=== PATIENT | male | born 1945 | race Caucasian/White ===

== ENCOUNTER → 2021-12-31 | Outpatient (CLI) | payer MEDICARE ==
--- NOTE | 2021-12-31 17:49 | CONS ---
CONSULTATION DATE OF SERVICE: 12/31/2021 This 76-year-old gentleman has been evaluated in [facility] for obstructive sleep apnea-hypopnea syndrome. HISTORY OF PRESENT ILLNESS/SLEEP-WAKE EVALUATION: The patient has had a history of obstructive sleep apnea for 20 years, but he does not remember that he had any diagnostic sleep study 20 years ago. He has been on treatment with CPAP all these years. Six months ago he was told that his CPAP unit is on recall, and he stopped using it. At present his sleep schedule us from 9 or 10 p.m. until 7 or 8 a.m. Usually no problems with falling asleep. No TV in bedroom. He sleeps on the side position. He snores. He wakes up from sleep 3 times with nocturia. During the day he is falling asleep. [place] Sleepiness Scale today is increased at 13. The patient may take naps several times during the day. No history of hypnagogic hallucinations, sleep paralysis or cataplexy. I checked the patient's CPAP unit. This is a [employer] unit. Pressure is 8 cm of water. PAST MEDICAL HISTORY: Positive for hypertension, hyperlipidemia, prostate carcinoma, history of atrial fibrillation. PAST SURGICAL TREATMENT: Radiation therapy for prostate carcinoma, fracture of left leg, right hand finger surgery. MEDICATIONS: Amiodarone, atorvastatin 20 mg once a day, lisinopril 10 mg once a day, Xarelto 20 mg once a day. FAMILY HISTORY: Heart problems. REVIEW OF SYSTEMS: Multiple awakenings from sleep, sleepiness during the day. No fevers. No double vision. No recent chest pain. No shortness of breath. No abdominal pain. No bleeding episodes. No blood in the urine. No seizure episodes. PHYSICAL EXAMINATION: GENERAL: Pleasant gentleman without distress. VITAL SIGNS: BP 123/72, HR 72, RR 16, height 5 feet 11 inches, weight 244 pounds, body mass index 34, temperature 96.7, oxygen saturation at room air 97%. HEENT: PERRLA, EOMI, evaluation of oropharynx showed tongue protrudes midline. Low position of soft palate; Mallampati IV. NECK: Supple, no JVD. Thyroid is not palpable. Neck is wide; 18 inches in circumference. LUNGS: Clear to percussion and to auscultation. Good air exchange. No wheezing or rhonchi. HEART: S1, S2 regular. No murmurs, gallops, or rubs. ABDOMEN: Soft and nontender. Bowel sounds are present. No organomegaly appreciated. EXTREMITIES: No clubbing or cyanosis. NURSE CARE MANAGER: Awake, alert, and oriented X3. Cranial nerves 2 to 7 intact. There is no fasciculation or atrophy. noted. No focal deficits observed. IMPRESSION: 1. Snoring, multiple awakenings from sleep, extremely low position of soft palate, Mallampati IV, wide neck, 18 inches in circumference, history of obstructive sleep apnea in the past, sleepiness, [place] Sleepiness Scale of 13; obstructive sleep apnea-hypopnea syndrome. 2. Obesity; body mass index 34. 3. Hypertension. 4. History of atrial fibrillation. 5. Hyperlipidemia. 6. History of prostate carcinoma, status post radiation therapy. PLAN: 1. Polysomnogram for evaluation of patient's breathing during sleep. Previous diagnostic study is not available. 2. CPAP treatment will be reinitiated after the sleep study. The previous titration which was done in another institution indicates that the pressure 8 cm of water was effective for correction of respiratory abnormalities. 3. Losing weight. 4. Sleep hygiene with regular time in bed for at least 7-1/2 to 8 hours. 5. No driving if feeling sleepiness. 6. Patient prefers to try usage of nasal pillows. Size of pillows should be medium to large AirFit P10. Thank you very much for referring this patient for consultation. Sincerely, Amadeo Patricia MD, PhD, FAASM Diplomat of [place] [employer] Sleep Medicine Board of [place] [employer] Organic Chemist of [facility] [place] MMODL / IJN: [id number] /
== END | disposition home or self-care (01) ==
LOC: SLEEP 13:36
PROVIDERS: ATTEND Internal Medicine
DX: G47.33 Obstructive sleep apnea (adult) (pediatric) (principal); E66.9 Obesity, unspecified; I10 Essential (primary) hypertension; E78.5 Hyperlipidemia, unspecified; Z85.46 Personal history of malignant neoplasm of prostate; Z68.34 Body mass index [BMI] 34.0-34.9, adult
CPT/HCPCS: 99211

== ENCOUNTER → 2022-03-05 | Outpatient (CLI) | payer MEDICARE ==
--- NOTE | 2022-03-05 10:59 | P.PN ---
Subjective DATE: 03/05/2022 FOLLOW UP VISIT. Patient with obstructive sleep apnea hypopnea syndrome return to sleep center for follow-up visit. Recently patient had sleep study which documented obstructive sleep apnea hypopnea syndrome. Patient was initiated on PAP therapy and today is first visit after treatment was started. I discussed the results of sleep studies with patient in details. Patient was able to use PAP equipment every night for the whole night. The patient does not have significant problems with the mask, PAP pressure and humidification. [place] sleepiness scale is 17. I checked information from PAP unit. PAP unit pressure 8 cm H2O. Usage is 80 % for more then 4 hours, average 5.8 hours per night. Leak is 33.8 l/m, which is in acceptable range. Apnea Hypopnea Index is 2.4, which is normal. MEDICATIONS:1. Amiodarone 2. Atorvastatin 20 mg once a day 3. Lisinopril 10 mg once a day 4. Xarelto 20 mg once a day During physical exam: GENERAL: A pleasant patient without any distress. VITAL SIGNS: BP 133/80, HR 51, RR 16 , weight 236.8, temperature 97.0, oxygen saturation at room air 96% . HEENT: PERRLA, EOMI.low position of soft palate, Mallapati 4 . NECK: Supple. No JVD. LUNGS: Clear to percussion and to auscultation. Good air exchange. No wheezing or rhonchi. HEART: S1, S2 regular. ABDOMEN: Soft and nontender.[] EXTREMITIES: No clubbing or cyanosis. OCCUPATIONAL THERAPY TEACHER: Awake, alert, and oriented x3. No focal deficit. Impressions: 1. Obstructive sleep apnea-hypopnea syndrome. Patient demonstrated great compliance with treatment, benefiting from treatment. 2. Hypertension. 3. History of atrial fibrillation. 4. Hyperlipidemia. 5. History of prostate CA status post radiation therapy. Plan: 1. Continue using PAP equipment every night for the whole night. 2. To change air filter at least 1-2 times per month. 3. PAP unit should stay lower then position of the head. 4. Advised patient to remove all remaining water from humidifier canister daily and make it dry after each usage. Refill canister with fresh distilled water before each usage. 5. Sleep hygiene with regular time in bed for at least 8 hours. 6. Precautions related to driving. No driving if feel any sleepiness. 7. I will maintain prescription for PAP supplies including mask, tube, filters. 8. Follow up visit in 6 months or earlier if patient has any problems. 9. Watching weight. Thank you very much for allowing me to participate in the management of your patient. Amadeo Patricia MD, PhD, FAASM. Diplomat of [place] [employer], Sleep Medicine Board by [place] [employer] Customer Service Leader of [facility] [place]
== END ==
LOC: SLEEP 10:11
PROVIDERS: ATTEND Internal Medicine
DX: G47.33 Obstructive sleep apnea (adult) (pediatric) (principal); I10 Essential (primary) hypertension; I48.91 Unspecified atrial fibrillation; E78.5 Hyperlipidemia, unspecified; Z85.46 Personal history of malignant neoplasm of prostate; Z92.3 Personal history of irradiation; Z99.89 Dependence on other enabling machines and devices

== ENCOUNTER → 2023-05-14 | Day surgery (SDC) | payer MEDICARE ==
[~2023-05-14] MED LIST: LACTATED RINGERS 1,000 ML IV SCH; LIDOCAINE 1% (10MG/ML) FOR IV START INTRADERMA PRN
[2023-05-14 13:08] VITALS: BP 151/78; PULSE 55; RESP 16; TEMP 97.6
== END ==
LOC: OR 11:44
PROVIDERS: ATTEND Internal Medicine
DX: Z53.8 Procedure and treatment not carried out for other reasons (principal); I48.0 Paroxysmal atrial fibrillation

== ENCOUNTER 2023-09-22 08:30 | Inpatient (IN) | payer MEDICARE ==
[~2023-09-22 08:30] MED LIST changes: +HEPARIN SODIUM,PORCINE 10,000 UNIT in SODIUM CHLORIDE 0.9% 1,000 ML IRRIGATION PRN; -LACTATED RINGERS 1,000 ML IV SCH; -LIDOCAINE 1% (10MG/ML) FOR IV START INTRADERMA PRN
[2023-09-22] MEDS ORDERED: ALPRAZolam 0.5 MG TAB PO PRN (09:17)
[2023-09-22] MEDS ORDERED: NITROGLYCERIN SL TABS 0.4 MG TAB SUBLINGUAL PRN (09:17)
[2023-09-22] MEDS ORDERED: ALPRAZolam 0.25 MG TAB PO PRN (09:17)
[2023-09-22] MEDS ORDERED: HEPARIN SODIUM,PORCINE (1 ML) 2,500 UNIT in SODIUM CHLORIDE 0.9% 250 ML IRRIGATION PRN (09:21)
[2023-09-22] MEDS: SODIUM CHLORIDE 0.9% 1,000 ML IV ONE (09:32)
[2023-09-22] MEDS: ASPIRIN 81 MG ONE (09:41)
[2023-09-22] MEDS ORDERED: VERAPAMIL 2.5 MG/ML 2 ML AMP ONE (11:43)
[2023-09-22] MEDS ORDERED: fentaNYL (PF) 50 MCG/ML 2 ML AMP ONE (11:45)
[2023-09-22] MEDS ORDERED: HEPARIN SODIUM 1,000 UN/ML (10ML VL) ONE (11:45)
[2023-09-22] MEDS: fentaNYL (PF) 50 MCG/ML 2 ML AMP IVP ONE (11:54)
[2023-09-22] MEDS: MIDAZOLAM 2 MG/2 ML VIAL IVP ONE (11:55)
[2023-09-22] MEDS: HEPARIN SODIUM 1,000 UN/ML (10ML VL) IVP ONE (11:55)
[2023-09-22] MEDS: NITROGLYCERIN 1000MCG/10ML SYRINGE INTRACORON ONE (12:08)
[2023-09-22] MEDS: IOPAMIDOL-370 100ML BTL INJ ONE (12:26)
--- NOTE | 2023-09-22 12:35 | P.PRCINT ---
Percutaneous Coronary Int. - Percutaneous Coronary Intervention Percutaneous Coronary Intervention: PROCEDURES PERFORMED: Left coronary angiography, PCI mid LAD with 3.0 x 12 mm Xience ROMAIN, postdilated with a 3.5 noncompliant balloon, intravascular ultrasound INDICATION: Unstable angina, previous diagnostic heart catheterization with 70% mid LAD stenosis CONSENT:I have discussed the risks, benefits and alternative therapies for the above-mentioned procedure and for both sedation/analgesia as well as necessary blood product administration, if indicated, as they pertain to this patient. The patient has indicated understanding and acceptance of the risks and procedures discussed. PROCEDURE: After the risks, benefits and alternatives of the above mentioned procedure explained in detail with the patient, informed consent was obtained. Patient was taken to the catheterization lab and prepped and draped in usual fashion. A 6-Thai sheath had previously been placed in the right radial artery. The decision was made to perform PCI of the LAD. Heparin was given for ACT greater than 250. A 6 Thai CLS 4.5 guide was used to engage the left main. A 0.014 BMW wire was advanced in the distal LAD. A 2.5 x 8 mm balloon was used to predilate the lesion. Next a 3.0 x 12 mm Xience ROMAIN was placed in the mid LAD. Intravascular ultrasound showed distal well-expanded stent however more proximally underexpanded with reference vessel approximately 3.5 mm. Therefore the stent was postdilated with a 3.5 mm noncompliant balloon. Repeat intravascular ultrasound showed well-expanded stent and no dissection. Final angiograms were performed. Preintervention there was 70% stenosis with SABA-3 flow and postintervention there was less than 10% stenosis with SABA-3 flow. The right radial sheath was removed and a TR band was placed with hemostasis achieved. The patient tolerated the procedure well. Patient was transported back to the post catheterization holding area in stable condition. Conscious Sedation: Patient was monitored under the direct supervision of myself for conscious sedation using Versed and fentanyl for a total duration of 26 minutes HEMODYNAMICS: Aorta: 121/78 SELECTIVE CORONARY ARTERIOGRAPHY: LEFT MAIN: The left main is a large caliber vessel which trifurcates into the LAD, ramus and circumflex. There is no significant stenosis. LEFT ANTERIOR DESCENDING CORONARY ARTERY: LAD is a large caliber vessel which wraps around to the apex. There is a mid LAD 70% stenosis and otherwise mild luminal irregularities. Diagonal 1 has a 40% proximal stenosis. RAMUS INTERMEDIUS: The ramus is a small to moderate caliber vessel with a proximal 40% stenosis. LEFT CIRCUMFLEX CORONARY ARTERY: Left circumflex is a moderate to large caliber vessel without significant stenosis and gives rise to the PDA and is the dominant vessel.. RIGHT CORONARY ARTERY: The right coronary artery was not imaged however known to be small caliber nondominant with no significant stenosis. FINAL IMPRESSION: 1. CAD as described above including 70% mid LAD, diagonal 140%, ramus 40% stenosis. 2. S/p PCI mid LAD with 3.0 x 12 mm Xience ROMAIN, postdilated with a 3.5 noncompliant balloon PLAN: 1. Aggressive risk factor modification per most recent ACC/AHA guidelines. 2. Continue Plavix and Xarelto for 12 months given unstable angina
[2023-09-22] MEDS: ASPIRIN 325 MG TAB PO STA (12:49)
[2023-09-22] MEDS: SODIUM CHLORIDE 0.9% 1,000 ML in EMPTY BAG 1 BAG IV SCH (12:49)
[2023-09-22] MEDS: ATORVASTATIN 80 MG TAB PO STA (12:49)
[2023-09-22] MEDS ORDERED: ATROPINE SULFATE 0.1 MG/ML 10ML SYRINGE IV PRN (13:30)
[2023-09-22] MEDS ORDERED: ZOLPIDEM 5 MG TAB PO PRN (13:30)
[2023-09-22] MEDS ORDERED: RX INFO: IV CONTRAST WAS GIVEN 1 EACH MISC MISCELLANE PRN (13:30)
[2023-09-22] MEDS ORDERED: MAG HYDROX/AL HYDROX/SIMETH 30 ML CUP PO PRN (13:30)
[2023-09-22] MEDS: RIVAROXABAN 20 MG TAB PO SCH (18:12)
--- NOTE | 2023-09-23 07:36 | P.HPIM ---
History of Present Illness This is a pleasant 77 years old male with past medical history of atrial fibrillation on blood thinner, hypertension, sleep apnea. Patient presents with acute chest pain. The pain is on and off for the last 24 hours. Patient also was complaining of from palpitation and his EKG was showing atrial fibrillation with RVR with a heart rate was 130s. Patient also has some dyspnea on exertion. He was placed on 2 L of oxygen via nasal cannula was showing improvement. Patient originally came to [facility]. He has history of coronary artery disease and stent placed before. Then he was transferred to [facility] for cardiac cath done urgently yesterday. 2-D echocardiogram revealed normal LV segmental wall motion with mild concentric LVH and LVEF 50% with no aortic regurgitation, mild MR, mild TR, RVSP 30-35 mmHg. Patient had cardiac cath showing mid LAD 70% stenosis with mild luminal irregularity. Normal LVEDP. Patient so transferred to [facility] for PCI of LAD Patient is hemodynamically stable and afebrile He has unremarkable CBC with WBC 6.3, hemoglobin 14.6, platelet count 192 Sodium 143, potassium 4.4, creatinine 1.1. AST mildly 39, mild to moderately up 73, total bilirubin is slightly elevated 1.3. INR is 1.09. Chest x-ray showing cardiomegaly with no acute cardiopulmonary process Review of Systems Review of systems CONSTITUTIONAL: No fever, no malaise, no fatigue. HEENT: No recent visual problems or hearing problems. Denied any sore throat. CARDIOVASCULAR: No orthopnea, PND, no palpitations, no syncope. PULMONARY: No shortness of breath, no cough, no hemoptysis. GASTROINTESTINAL: No diarrhea, no nausea, no vomiting, no abdominal pain. Normoactive bowel sounds. NEUROLOGICAL: No headaches, no weakness, no numbness. HEMATOLOGICAL: Denies any bleeding or petechiae. GENITOURINARY: Denies any burning micturition, frequency, or urgency. MUSCULOSKELETAL/RHEUMATOLOGICAL: Denies any joint pain, swelling, or any muscle pain. ENDOCRINE: Denies any polyuria or polydipsia. Past Medical History Past Medical History: Atrial Fibrillation, Cancer, Heart Failure, Hyperlipidemia, Hypertension, Sleep Apnea/CPAP/BIPAP Additional Past Medical History / Comment(s): Prostate cancer with seeds implanted, NULATO History of Any Multi-Drug Resistant Organisms: None Reported Past Surgical History: Orthopedic Surgery Additional Past Surgical History / Comment(s): Cardioversions, multiple surgeries for fractures with surgeries, colonoscopy Past Anesthesia/Blood Transfusion Reactions: No Reported Reaction Past Psychological History: No Psychological Hx Reported Smoking Status: Never smoker Past Alcohol Use History: Rare Past Drug Use History: None Reported - Past Family History Mother Family Medical History: No Reported History Additional Family Medical History / Comment(s): Mother is 94 yrs old. Father Additional Family Medical History / Comment(s): at age 65yrs/etoh Medications and Allergies Home Medications Medication Instructions Recorded Confirmed Type Chlorthalidone 25 mg PO DAILY 09/22/23 09/22/23 History Ezetimibe [Zetia] 10 mg PO DAILY 09/22/23 09/22/23 History Losartan [Cozaar] 100 mg PO DAILY 09/22/23 09/22/23 History Rivaroxaban [Xarelto] 20 mg PO W/SUPPER 09/22/23 09/22/23 History Allergies Allergy/AdvReac Type Severity Reaction Status Date / Time No Known Allergies Allergy Verified 09/22/23 12:57 Physical Exam Vitals: Vital Signs Temp Pulse Pulse Resp BP Pulse Ox 09/23/23 04:00 94 20 159/90 97 09/23/23 01:28 94 18 09/23/23 00:00 94 18 142/83 09/22/23 20:00 91 18 09/22/23 19:35 97.9 F 91 18 118/70 97 09/22/23 16:10 97.5 F L 85 16 121/77 97 09/22/23 15:15 68 108/68 94 L 09/22/23 15:00 78 127/82 95 09/22/23 13:35 77 132/81 94 L 09/22/23 13:20 76 129/90 97 09/22/23 13:05 66 120/73 95 09/22/23 12:50 71 107/74 97 09/22/23 12:47 97.6 F 60 18 112/72 93 L 09/22/23 11:34 72 18 118/74 97 09/22/23 11:11 74 18 121/75 95 09/22/23 10:41 72 18 114/77 97 09/22/23 10:11 76 18 122/82 97 09/22/23 09:56 80 18 114/86 97 09/22/23 09:41 82 18 112/73 95 09/22/23 09:34 97.3 F L 84 16 121/73 96 09/22/23 09:26 86 18 112/73 95 Intake and Output 09/22/23 09/23/23 09/23/23 22:59 06:59 14:59 Intake Total 180 Balance 180 Intake: Oral 180 Other: Voiding Method Toilet Toilet # Voids 1 2 # Bowel Movements 1 GENERAL: The patient is alert and oriented x3, not in any acute distress. Well developed, well nourished. HEENT: Pupils are round and equally reacting to light. EOMI. No scleral icterus. No conjunctival pallor. Normocephalic, atraumatic. No pharyngeal erythema. No thyromegaly. CARDIOVASCULAR: S1 and S2 present. No murmurs, rubs, or gallops. PULMONARY: Chest is clear to auscultation, no wheezing , no crackles. ABDOMEN: Soft, nontender, nondistended, normoactive bowel sounds. No palpable organomegaly. MUSCULOSKELETAL: No joint swelling or deformity. EXTREMITIES: No cyanosis, clubbing, or pedal edema. NEUROLOGICAL: Gross neurological examination did not reveal any focal deficits. SKIN: No rashes. no petechiae. Thrombosis Risk Factor Assmnt - Choose All That Apply Each Factor Represents 1 point: Obesity (BMI >25) Each Risk Factor Represents 3 Points: Age 75 years or older Thrombosis Risk Factor Assessment Total Risk Factor Score: 4 Thrombosis Risk Factor Assessment Level: Moderate Risk Assessment and Plan Assessment: Chest pain, unstable angina, secondary to LAD stenosis status post PCI Paroxysmal atrial fibrillation with RVR on xarelto Hypertension History of sleep apnea Obesity with BMI of 34.7 Plan: Continue with aspirin and Plavix. Continue with xarelto Continue with metoprolol with dose increased to 25 mg twice a day Continue with statin Cardiology consult on the case Labs and medication were reviewed.. Continue same treatment. Continue with symptomatic treatment. Resume home medication. Monitor labs and vitals. DVT and GI prophylaxis. Further recommendations as per clinical course of the patient DVT prophylaxis: xarelto GI Prophylaxis: Pepcid
[2023-09-23] MEDS: ASPIRIN 81 MG PO SCH (09:19)
[2023-09-23] MEDS: ATORVASTATIN 40 MG TAB PO SCH (09:19)
[2023-09-23] MEDS: EZETIMIBE 10 MG TAB PO SCH (09:19)
[2023-09-23] MEDS: LOSARTAN 50 MG TAB PO SCH (09:19)
[2023-09-23] MEDS: CLOPIDOGREL 75 MG TAB PO SCH (09:19)
[2023-09-23] MEDS: METOPROLOL TARTRATE 25 MG TAB PO SCH (09:19)
[2023-09-23 11:32] LABS: HCT 40.1 % (39.0-53.0); HGB 14.1 gm/dL (13.0-17.5); MCH 34.1 pg (25.0-35.0); MCHC 35.1 g/dL (31.0-37.0); Mean Platelet Volume 7.8; Platelet Count 186 k/uL (150-450); RBC 4.13 m/uL (4.30-5.90); RDW 13.8 % (11.5-15.5); WBC 4.7 k/uL (3.8-10.6)
[2023-09-23 11:44] LABS: African American GFR (CKD) 84 (>60 ml/min/1.73 sqM); Anion Gap 10 mmol/L; Blood Urea Nitrogen 19 mg/dL (9-20); Calcium 9.5 mg/dL (8.4-10.2); Carbon Dioxide 21 mmol/L (22-30); Chloride 109 mmol/L (98-107); Glucose 97 mg/dL (74-99); Non-African American GFR(CKD) 73 (>60 ml/min/1.73 sqM); Potassium 3.9 mmol/L (3.5-5.1); Sodium 140 mmol/L (137-145)
--- NOTE | 2023-09-23 11:48 | P.PN ---
Subjective Progress Note Date: 09/23/23 History of present illness: This is a 77-year-old male patient of Dr. Briseno with past medical history of permanent atrial fibrillation, hypertension, hyperlipidemia, statin intolerance, obstructive sleep apnea, obesity. Patient initially presented to [facility] with chest pain that occurred over the previous 24 hours. Patient was found to be tachycardic in A-fib with RVR up to 130. Patient was diagnosed with unstable angina and thus move forward with cardiac catheterization. Patient underwent cardiac catheterization which revealed 70% mid LAD, diagonal 40 %, ramus 40%. Patient was transferred to [facility] underwent PCI of the mid LAD with drug-eluting stent with Dr. Briseno. Patient is seen today in follow-up. He is in atrial fibrillation with rate running up to 120. He is concerned that his heart rate has not been controlled. He denies having any chest pain or shortness of breath. Blood pressure 136/76, pulse ox 97% on room air. Echocardiogram performed at [facility] revealed normal LV size, normal LV segmental wall motion, mild concentric left ventricular hypertrophy, left ventricular systolic function of 50%. Mild MR, mild TR, RVSP 30 to 35 mmHg. No pericardial effusion. Physical examination: Gen: This is a 77-year-old male in no acute distress VS: reviewed HEENT: Head is atraumatic, normocephalic. Pupils equal, round. Sclerae is anicteric. NECK: Supple. No JVD. LUNGS: Clear to auscultation. No wheezes or rhonchi. No intercostal retractions. HEART: Irregular rate and rhythm. No murmur. ABDOMEN: Soft No tenderness. EXTREMITIES: No pedal edema. No calf tenderness. NEUROLOGICAL: Patient is awake, alert and oriented x3. Assessment: Unstable angina with coronary artery disease status post PCI of the LAD 09/22 Permanent atrial fibrillation with mild RVR Hypertension Hyperlipidemia with statin intolerance Obstructive sleep apnea Plan: Continue patient's home cardiac medications CBC and BMP ordered Decrease Xarelto to 15 mg daily as patient is now on aspirin and Plavix Add metoprolol 25 mg twice daily for rate control Continue telemetry monitoring Anticipate discharge home tomorrow Further recommendations to follow based upon clinical course Thank you kindly for this consultation. Nurse practitioner note has been reviewed, I agree with documented findings and plan of care. Patient was seen and examined. Objective - Vital Signs Vital signs: Vital Signs Temp 98.1 F 09/23/23 07:42 Pulse 121 H 09/23/23 07:42 Resp 16 09/23/23 07:42 BP 136/76 09/23/23 07:42 Pulse Ox 97 09/23/23 07:42 FiO2 Intake & Output 09/22/23 09/23/23 09/23/23 18:59 06:59 18:59 Intake Total 480 490 Output Total 200 300 Balance 280 190 Weight 116.1 kg Intake: IV 300 10 Invasive Line 1 10 Oral 180 480 Output: Urine 200 300 Other: Voiding Method Toilet Toilet # Voids 1 2 1 # Bowel Movements 1
[2023-09-23 12:12] VITALS: BMI 34.7
[2023-09-23] MEDS: RIVAROXABAN 15 MG TAB PO SCH (17:11)
[2023-09-23 22:25] VITALS: TEMP 97.6
[2023-09-24 01:14] VITALS: RESP 16
[2023-09-24 08:55] VITALS: BP 151/83; PULSE 81
--- NOTE | 2023-09-24 12:16 | P.PN ---
Subjective Progress Note Date: 09/24/23 History of present illness: This is a 77-year-old male patient of Dr. Briseno with past medical history of permanent atrial fibrillation, hypertension, hyperlipidemia, statin intolerance, obstructive sleep apnea, obesity. Patient initially presented to [facility] with chest pain that occurred over the previous 24 hours. Patient was found to be tachycardic in A-fib with RVR up to 130. Patient was diagnosed with unstable angina and thus move forward with cardiac catheterization. Patient underwent cardiac catheterization which revealed 70% mid LAD, diagonal 40 %, ramus 40%. Patient was transferred to [facility] underwent PCI of the mid LAD with drug-eluting stent with Dr. Briseno. Patient is seen today in follow-up. He is in atrial fibrillation with rate running up to 120. He is concerned that his heart rate has not been controlled. He denies having any chest pain or shortness of breath. Blood pressure 136/76, pulse ox 97% on room air. Echocardiogram performed at [facility] revealed normal LV size, normal LV segmental wall motion, mild concentric left ventricular hypertrophy, left ventricular systolic function of 50%. Mild MR, mild TR, RVSP 30 to 35 mmHg. No pericardial effusion. 09/23 Patient denies having any chest pain, shortness of breath, lightheadedness or dizziness. Patient is been ambulating without symptoms. Blood pressure 151/83, heart rate 60s to 80s. Laboratory studies from yesterday revealed hemoglobin 14.1, BUN 19 creatinine 0.99, potassium 3.9. Physical examination: Gen: This is a 77-year-old male in no acute distress VS: reviewed HEENT: Head is atraumatic, normocephalic. Pupils equal, round. Sclerae is anicteric. LUNGS: Clear to auscultation. No wheezes or rhonchi. No intercostal retractions. HEART: Irregular rate and rhythm. No murmur. EXTREMITIES: No pedal edema. No calf tenderness. NEUROLOGICAL: Patient is awake, alert and oriented x3. Assessment: Unstable angina with coronary artery disease status post PCI of the LAD 09/22 Permanent atrial fibrillation with mild RVR Hypertension Hyperlipidemia with statin intolerance Obstructive sleep apnea Plan: Patient is cleared for discharge on the following medications: Aspirin 81 mg daily, atorvastatin 40 mg daily, Lopressor 25 mg twice daily, Plavix 75 mg daily, nitroglycerin 0.4 mg as needed, Xarelto decreased to 15 mg with supper. Patient is cleared for discharge home May follow-up with Dr. Briseno in 1 week. Nurse practitioner note has been reviewed, I agree with documented findings and plan of care. Patient was seen and examined. Objective - Vital Signs Vital signs: Vital Signs Temp 97.6 F 09/24/23 08:00 Pulse 81 09/24/23 08:00 Resp 16 09/24/23 08:00 BP 151/83 09/24/23 08:00 Pulse Ox 96 09/24/23 08:00 FiO2 Intake & Output 09/23/23 09/24/23 09/24/23 18:59 06:59 18:59 Intake Total 970 360 Output Total 300 Balance 670 360 Weight 116.1 kg Intake: IV 10 Invasive Line 1 10 Oral 960 360 Output: Urine 300 Other: Voiding Method Toilet Toilet # Voids 3 3 - Labs CBC & Chem 7: 09/23/23 10:49 09/23/23 10:49 Labs: Abnormal Lab Results - Last 24 Hours (Table) 09/23/23 09/23/23 Range/Units 10:49 10:49 RBC 4.13 L (4.30-5.90) m/uL Chloride 109 H (98-107) mmol/L Carbon Dioxide 21 L (22-30) mmol/L
--- NOTE | 2023-09-24 21:41 | P.DS ---
Providers Date of admission: 09/22/23 09:16 Attending physician: Gloria Jones Consults: 09/22/23 13:30 Consult Physician Routine Consulting Provider: [facility] Consult Reason/Comments: Post Interventional Patient Do you want consulting provider notified?: Already Contacted Primary care physician: Alan Baptiste [facility] Course: Diagnoses: Chest pain, unstable angina, secondary to LAD stenosis status post PCI Paroxysmal atrial fibrillation with RVR on xarelto Hypertension History of sleep apnea Obesity with BMI of 34.7 Hospital course: This is a pleasant 77 years old male with past medical history of atrial fibrillation on blood thinner, hypertension, sleep apnea. Patient presents with acute chest pain. The pain is on and off for the last 24 hours. Patient also was complaining of from palpitation and his EKG was showing atrial fibrillation with RVR with a heart rate was 130s. Patient also has some dyspnea on exertion. He was placed on 2 L of oxygen via nasal cannula was showing improvement. 2-D echocardiogram revealed normal LV segmental wall motion with mild concentric LVH and LVEF 50% with no aortic regurgitation, mild MR, mild TR, RVSP 30-35 mmHg. Patient had cardiac cath showing mid LAD 70% stenosis with mild luminal irregularity. Normal LVEDP. Patient so transferred to [facility] for PCI of LAD Postprocedure patient was fully awake and alert, he denies any chest pain no dyspnea. No other new complaint. Patient eager to be discharged home today. Patient understands has been told he is on 2 dual antiplatelet therapy aspirin and Plavix as well as Xarelto and all increased risk of bleeding and he verbalized understanding and acceptance to be on this medication per fan runner rating to recommendation. Risk and benefits explained extensively and he verbalized understanding and acceptance Patient was cleared for discharge by fan runner Problems and management plan were discussed with the patient and he verbalized understanding and acceptance Patient was found stable and can be discharged home in guarded prognosis however he needs follow-up as an outpatient. Patient was instructed to follow up with PCP Dr. Baptiste within one week and patient agrees Was instructed to follow-up with fan runner Dr. Briseno in 1 week and he agrees Xarelto dose was lowered 20 mg down to 15 mg per fan runner Discharge prescription was sent by cardiology team to his pharmacy Physical exam Gen: patient is a AAOx3, no distress CVS: S1-S2, RRR, no murmur Lungs: B/L CTA, no wheezing Abdomen: soft, no distention, no tenderness, positive bowel sounds Extremity: no leg edema or induration Time spent more than 35 minutes Plan - Discharge Summary Discharge Rx Participant: No New Discharge Prescriptions: New Aspirin 81 mg PO DAILY #0 tab Atorvastatin [Lipitor] 40 mg PO DAILY #90 tab Metoprolol Tartrate [Lopressor] 25 mg PO BID #180 tab Clopidogrel [Plavix] 75 mg PO DAILY #90 tab Nitroglycerin Sl Tabs [Nitrostat] 0.4 mg SUBLINGUAL Q5M PRN #25 tab PRN Reason: Chest Pain Rivaroxaban [Xarelto] 15 mg PO W/SUPPER #30 tab Continue Ezetimibe [Zetia] 10 mg PO DAILY Losartan [Cozaar] 100 mg PO DAILY Discontinued Chlorthalidone 25 mg PO DAILY Rivaroxaban [Xarelto] 20 mg PO W/SUPPER Discharge Medication List Ezetimibe [Zetia] 10 mg PO DAILY 09/22/23 [History] Losartan [Cozaar] 100 mg PO DAILY 09/22/23 [History] Aspirin 81 mg PO DAILY #0 tab 09/24/23 [Rx] Atorvastatin [Lipitor] 40 mg PO DAILY #90 tab 09/24/23 [Rx] Clopidogrel [Plavix] 75 mg PO DAILY #90 tab 09/24/23 [Rx] Metoprolol Tartrate [Lopressor] 25 mg PO BID #180 tab 09/24/23 [Rx] Nitroglycerin Sl Tabs [Nitrostat] 0.4 mg SUBLINGUAL Q5M PRN #25 tab 09/24/23 [Rx] Rivaroxaban [Xarelto] 15 mg PO W/SUPPER #30 tab 09/24/23 [Rx] Follow up Appointment(s)/Referral(s): Du Briseno DO [STAFF PHYSICIAN] - 10/08/23 7:30 am Alan Baptiste DO [Primary Care Provider] - 1 Week Patient Instructions/Handouts: Heart Catheterization (DC) Discharge Disposition: HOME SELF-CARE
== END 2023-09-24 11:24 | disposition home or self-care (01) | DRG 322 ==
LOC: 3SCARD 09:16
PROVIDERS: ADMIT Internal Medicine; ATTEND Internal Medicine
PROC: B2101ZZ Fluoroscopy of Single Coronary Artery using Low Osmolar Contrast (ICD-10-PCS; 2023-09-22)
PROC: 027034Z Dilation of Coronary Artery, One Artery with Drug-eluting Intraluminal Device, Percutaneous Approach (ICD-10-PCS; principal; 2023-09-22 11:45)
PROC: B240ZZ3 Ultrasonography of Single Coronary Artery, Intravascular (ICD-10-PCS; 2023-09-22 11:45)
DX: I25.110 Atherosclerotic heart disease of native coronary artery with unstable angina pectoris (principal); I11.0 Hypertensive heart disease with heart failure; E66.9 Obesity, unspecified; I08.1 Rheumatic disorders of both mitral and tricuspid valves; E78.5 Hyperlipidemia, unspecified; I48.0 Paroxysmal atrial fibrillation; G47.33 Obstructive sleep apnea (adult) (pediatric); I50.9 Heart failure, unspecified; Z68.34 Body mass index [BMI] 34.0-34.9, adult; Z79.01 Long term (current) use of anticoagulants; Z79.899 Other long term (current) drug therapy; Z85.46 Personal history of malignant neoplasm of prostate; Z95.5 Presence of coronary angioplasty implant and graft
CPT/HCPCS: 80048; 85027; 92978; 94760

== ENCOUNTER → 2023-11-08 | Outpatient (CLI) | payer MEDICARE ==
[2023-11-08 20:08] LABS: HCT 40.8 % (39.6-50.0); MCH 32.6 pg (27.0-32.0); MCHC 34.3 g/dL (32.0-37.0); MCV 94.9 FL (80.0-97.0); Mean Platelet Volume 10.3 FL (9.5-12.2); NRBC Per 100 WBC 0 X 10*3/uL (0.00-0.01); Platelet Count 190 X 10*3/uL (140-440); RDW 12.8 % (11.5-14.5); WBC 7.25 X 10*3/uL (4.50-10.00)
[2023-11-08 23:40] LABS: BUN/Creat Ratio 23.08 Ratio (12.00-20.00); Calcium 9.8 mg/dL (8.7-10.3); Chloride 105 mmol/L (96-109); Glucose 112 mg/dL (70-110); Potassium 3.9 mmol/L (3.5-5.5); Sodium 142 mmol/L (135-145)
== END | disposition home or self-care (01) ==
LOC: LABWHC1 16:16
PROVIDERS: ATTEND Nurse Practitioner Acute Care
DX: I48.91 Unspecified atrial fibrillation (principal)
CPT/HCPCS: 36415; 80048; 84443; 85027

== ENCOUNTER 2023-11-25 09:54 | Day surgery (SDC) | payer MEDICARE ==
[~2023-11-25 09:54] MED LIST changes: +ALPRAZolam 0.25 MG TAB PO PRN; +ALPRAZolam 0.5 MG TAB PO PRN; +ASPIRIN 325 MG TAB PO STA; +HEPARIN SODIUM,PORCINE (1 ML) 2,500 UNIT in SODIUM CHLORIDE 0.9% 250 ML IRRIGATION PRN; +NITROGLYCERIN SL TABS 0.4 MG TAB SUBLINGUAL PRN; +SODIUM CHLORIDE 0.9% 1,000 ML in EMPTY BAG 1 BAG IV ONE
[2023-11-25] MEDS: SODIUM CHLORIDE 0.9% 1,000 ML IV ONE (10:31)
[2023-11-25] MEDS ORDERED: HEPARIN SODIUM 1,000 UN/ML (10ML VL) ONE (12:01)
[2023-11-25] MEDS ORDERED: fentaNYL (PF) 50 MCG/ML 2 ML AMP ONE (12:01)
[2023-11-25] MEDS ORDERED: LIDOCAINE 1% INJ 10MG/ML (20 ML MDV) ONE (12:01)
[2023-11-25] MEDS ORDERED: VERAPAMIL 2.5 MG/ML 2 ML AMP ONE (12:02)
[2023-11-25] MEDS: VERAPAMIL SYRINGE (5 MG/10 ML) INTRAARTER ONE (12:43)
[2023-11-25] MEDS: LIDOCAINE 1% INJ 10MG/ML (30 ML VIAL-PF) SQ ONE (12:43)
[2023-11-25] MEDS: MIDAZOLAM 2 MG/2 ML VIAL IVP ONE (12:43)
[2023-11-25] MEDS: fentaNYL (PF) 50 MCG/1 ML VIAL IVP ONE (12:44)
[2023-11-25] MEDS: IOPAMIDOL-370 100ML BTL INJ ONE (12:51)
[2023-11-25] MEDS: HEPARIN SODIUM 1,000 UN/ML (10ML VL) IVP ONE (12:59)
--- NOTE | 2023-11-25 13:00 | P.CARDCATH ---
Description of Procedure: PROCEDURES PERFORMED: Left heart catheterization, bilateral coronary angiography, ultrasound guided arterial access INDICATION: unstable angina CONSENT:I have discussed the risks, benefits and alternative therapies for the above-mentioned procedure and for both sedation/analgesia as well as necessary blood product administration, if indicated, as they pertain to this patient. The patient has indicated understanding and acceptance of the risks and procedures discussed. PROCEDURE: After the risks, benefits and alternatives of the above mentioned procedure explained in detail with the patient, informed consent was obtained. Patient was taken to the catheterization lab and prepped and draped in usual fashion. Ultrasound guidance was used to assess for arterial access. 1% lidocaine was used to anesthetize the right radial artery. A 6-Dutch sheath was placed in the right radial artery using modified Seldinger technique and ultrasound guidance. Left coronary angiography was performed with a 5-Dutch JL 3.5 catheter and right coronary angiography was performed with a 5-Dutch FR5 catheter in various views. A 5-Dutch FR5 catheter was inserted into the left ventricle and pressure measurements were obtained. The right radial sheath was removed and a TR band was placed with hemostasis achieved. The patient tolerat ed the procedure well. Patient was transported back to the post catheterization holding area in stable condition. Conscious Sedation: Patient was monitored under the direct supervision of myself for conscious sedation using Versed and fentanyl for a total duration of 13 minutes HEMODYNAMICS: aorta: 100/55 LV: 101/2, LVEDP 3 SELECTIVE CORONARY ARTERIOGRAPHY: LEFT MAIN: The left main is a large caliber vessel which trifurcates into the LAD, ramus and circumflex. There is no significant stenosis. LEFT ANTERIOR DESCENDING CORONARY ARTERY: LAD is a large caliber vessel which wraps around to the apex. There is a patent mid LAD stent and otherwise mild luminal irregularities. There is some slower flow noted in the proximal LAD felt most likely related related to microvascular dysfunction. there is proximal LAD 10% stenosis in mid LAD 20% stenosis. Diagonal 1 has a 30-40% proximal stenosis. RAMUS INTERMEDIUS: the ramus is a small to moderate caliber vessel with mild luminal irregularities. LEFT CIRCUMFLEX CORONARY ARTERY: Left circumflex is a moderate to large caliber vessel with mild luminal irregularities. The circumflex gives off the PDA and is the dominant vessel RIGHT CORONARY ARTERY: The right coronary artery is a moderate caliber vessel which gives off an acute marginal branch and is a non dominant vessel. There is no significant stenosis. FINAL IMPRESSION: 1. CAD as described above including 10-20% LAD stenosis, vertigo 40% diagonal 1 stenosis, patent mid LAD stent 2. SABA 2 flow of LAD possibly related to microvascular dysfunction 3. Low left sided filling pressures PLAN: 1. Aggressive risk factor modification per most recent ACC/AHA guidelines. 2. Avoid overdiuresis with low LVEDP noted. Additionally increase antianginal medications and monitor response. Previous IVUS of proximal LAD without any dissection and images appear unchanged.
[2023-11-25 17:18] VITALS: BP 106/75; PULSE 78; RESP 16
== END 2023-11-25 16:42 | disposition home or self-care (01) ==
LOC: CATHCVL 09:54
PROVIDERS: ATTEND Internal Medicine
DX: I25.10 Atherosclerotic heart disease of native coronary artery without angina pectoris (principal); I10 Essential (primary) hypertension; E78.5 Hyperlipidemia, unspecified; I48.0 Paroxysmal atrial fibrillation; Z79.82 Long term (current) use of aspirin; Z95.5 Presence of coronary angioplasty implant and graft; Z79.899 Other long term (current) drug therapy
CPT/HCPCS: 93458; 76937; C1769; C1894; J2250; J2001; J1644; Q9967; J3010

== ENCOUNTER → 2024-01-31 | Outpatient (CLI) | payer MEDICARE ==
[2024-01-31 10:47] LABS: HCT 42.9 % (39.0-53.0); HGB 14.3 gm/dL (13.0-17.5); MCH 33.3 pg (25.0-35.0); MCHC 33.3 g/dL (31.0-37.0); Mean Platelet Volume 8.1; Platelet Count 189 k/uL (150-450); RBC 4.29 m/uL (4.30-5.90); RDW 13.7 % (11.5-15.5); WBC 5.5 k/uL (3.8-10.6)
[2024-01-31 16:00] LABS: Blood Urea Nitrogen 19.1 mg/dL (9.0-27.0); Carbon Dioxide 21.5 mmol/L (21.6-31.8); Chloride 104 mmol/L (96-109); Sodium 140 mmol/L (135-145)
== END | disposition home or self-care (01) ==
LOC: LABPAT 08:51
PROVIDERS: ATTEND Internal Medicine Clinical Cardiac Electrophysiology
DX: Z01.812 Encounter for preprocedural laboratory examination (principal); I48.19 Other persistent atrial fibrillation
CPT/HCPCS: 80051; 82565; 84520; 85027

== ENCOUNTER 2024-02-03 08:36 | Day surgery (SDC) | payer MEDICARE ==
[2024-02-01 15:11] VITALS: BMI 33.2
[2024-02-03] MEDS: SODIUM CHLORIDE 0.9% 1,000 ML IV ONE (08:43)
[2024-02-03] MEDS ORDERED: HEPARIN SODIUM,PORCINE 10,000 UNIT/ML 1 ML VIAL ONE (10:46)
[2024-02-03] MEDS ORDERED: SUCCINYLCHOLINE CHLORIDE 200 MG/10 ML VIAL IV ONE (10:46)
[2024-02-03] MEDS ORDERED: fentaNYL (PF) 50 MCG/ML 2 ML AMP ONE (10:46)
[2024-02-03] MEDS ORDERED: LIDOCAINE 1% INJ 10MG/ML (20 ML MDV) ONE ×2 (10:46→11:00)
[2024-02-03] MEDS ORDERED: PROPOFOL 10 MG/ML 20 ML VIAL IV ONE (10:46)
[2024-02-03] MEDS ORDERED: ePHEDrine 50 MG/ML 1 ML VIAL ONE (10:46)
[2024-02-03] MEDS: HEPARIN SOD,PORK IN 0.45% NACL 25,000 UNIT in 0.45% NACL 1 250ML.BAG IV ONE (10:48)
--- NOTE | 2024-02-03 11:06 | P.HPCAR ---
History of Present Illness This is Dr. 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 Failed treatment Hypertension Mild LAD stenosis Left ventricular ejection fraction 45% PLAN: A-fib ablation with continuation of anticoagulation, Xarelto HPI Patient continues to complain of shortness of breath tiredness fatigue despite rate controlled atrial fibrillation He underwent electrical cardioversion in [place] but he is back in A-fib He has developed a mild cardiomyopathy Today he denies any dizziness syncope angina chest discomfort orthopnea or PND ROS: No fever chills or rigors, no cough, phlegm or expectoration, no nausea, vomiting or diarrhea, no hematuria, dysuria, no musculoskeletal complaints, no strokes or seizures, no skin lesions. EXAMINATION: 133/90 mmHg pulse rate 90 afebrile Breath sounds are reduced bilaterally with no rhonchi no crackles Heart sounds are irregular no murmurs No JVD Soft abdomen nontender No lower extremity edema REVIEW OF LABS, ECG & MEDICAL DATA Medications include Xarelto metoprolol Ranexa metoprolol losartan Plavix atorvastatin White count 5.5 thousand, hemoglobin 14.3 Platelet count 189,000 Sodium 140, potassium 4.0 BUN 19 creatinine 1.1 TSH normal 4.5 transfer to [facility] Physical Exam Vitals: Vital Signs Temp Pulse Resp BP Pulse Ox 02/03/24 08:57 97.4 F L 91 16 133/90 97 Intake and Output 02/02/24 02/03/24 02/03/24 22:59 06:59 14:59 Intake Total 50 Balance 50 Intake: IV 50 Other: Weight 110 kg Past Medical History Past Medical History: Atrial Fibrillation, Cancer, Heart Failure, Hearing Disorder / Deafness, Hyperlipidemia, Hypertension, Sleep Apnea/CPAP/BIPAP Additional Past Medical History / Comment(s): Hx prostate cancer with seeds implanted, [place], CPAP use. History of Any Multi-Drug Resistant Organisms: None Reported Past Surgical History: Heart Catheterization With Stent, Orthopedic Surgery Additional Past Surgical History / Comment(s): Cardioversions, multiple surgeries for fractures, colonoscopy, cardiac stent. Past Anesthesia/Blood Transfusion Reactions: No Reported Reaction Date of Last Stent Placement:: 08/2023 Smoking Status: Never smoker - Past Family History Mother Family Medical History: No Reported History Additional Family Medical History / Comment(s): Mother is 94 yrs old. Father Additional Family Medical History / Comment(s): at age 65yrs/etoh. Physical Examination Vital Signs Temp Pulse Resp BP Pulse Ox 02/03/24 08:57 97.4 F L 91 16 133/90 97 Intake and Output 02/02/24 02/03/24 02/03/24 22:59 06:59 14:59 Intake Total 50 Balance 50 Intake: IV 50 Other: Weight 110 kg Results Current Medications Generic Name Dose Route Start Last Admin Trade Name Freq PRN Reason Stop Dose Admin Sodium Chloride 1,000 mls @ 50 mls/hr 02/03/24 06:02 Saline 0.9% IV 03/04/24 06:03 .Q20H GABBIE Intake and Output 02/02/24 02/03/24 02/03/24 22:59 06:59 14:59 Intake Total 50 Balance 50 Intake: IV 50 Other: Weight 110 kg Patient Weight 02/04/24 06:59 Weight 110 kg
[2024-02-03] MEDS: LIDOCAINE 1% INJ 10MG/ML (20 ML MDV) SQ ONE (11:18)
[2024-02-03] MEDS: HEPARIN SODIUM,PORCINE (1 ML) 2,500 UNIT in SODIUM CHLORIDE 0.9% 250 ML IRRIGATION ONE (11:31)
[2024-02-03] MEDS: HEPARIN SODIUM,PORCINE 10,000 UNIT in SODIUM CHLORIDE 0.9% 1,000 ML IRRIGATION ONE (11:32)
[2024-02-03] MEDS: IOPAMIDOL-370 100ML BTL INJ ONE (13:08)
[2024-02-03] MEDS ORDERED: ACETAMINOPHEN TAB 325 MG TAB PO PRN (13:24)
[2024-02-03] MEDS: IV FLUID CONTINUATION 1,000 ML IV ONE (13:38)
--- NOTE | 2024-02-03 13:49 | P.EPPROC ---
- EP Procedure Note Electrophysiology Procedure Note: PROCEDURE A. fib ablation with PVI, left atrial septal ablation, left jeane ablation and left atrial roof ablation DIAGNOSIS Persistent atrial fibrillation, symptomatic, refractory to therapy, associated cardiomyopathy RESULT No left atrial appendage mass seen on intracardiac echo, mildly thickened pericardium with trace effusion Successful A. fib ablation/pulmonary vein isolation of all veins using cryo- ablation Complete entrance block in all 4 veins confirmed Left atrial roof ablation Left atrial septal ablation and ablation of the jeane between the left-sided veins No evidence for phrenic nerve injury Esophageal deflection NO Electrical cardioversion with a synchronized shock across the chest YES PROCEDURE DETAILS Written informed consent prior to procedure. Patient brought to the EP lab. General anesthesia given. Heparin administered. A city maintained above 300 seconds Both groins prepped and draped per protocol and venous sheaths placed. Esophagus intubated, circa catheter for temperature monitoring an endoscope for possible esophageal deflection. Phrenic nerve monitoring performed. Esophageal temperature monitoring performed. Esophageal deflection performed if circa catheter overlapping with the balloon or circa temperature less than 27.5C Intracardiac echocardiography performed. Pericardium evaluated. Left atrial appendage evaluated. Left atrium evaluated along with pulmonary veins Transseptal catheterization performed under fluoroscopic guidance and intracardiac echo guidance Cryoablation sheath exchanged, balloon catheter along with achieve catheter placed in the left atrium. Pulmonary veins isolated in the following sequence: Left superior pulmonary vein followed by left inferior pulmonary vein, followed by right inferior pulmonary vein and lastly right superior pulmonary vein. Phrenic nerve stimulation along with capture thresholds within the SVC and right superior pulmonary vein to identify the phrenic nerve proximity to the cryo- balloon. Pulmonary veins isolated and confirmed with entrance and exit block. Phrenic nerve integrity confirmed at the end of the procedure Ablation of the left atrial roof performed with sequential lesions from the left superior to the right superior pulmonary veins. Ablation of the electrograms confirmed Ablation of the left atrial septum performed with cannulation of the inferior branch of the right superior vein to achieve ablation of the posterior septum of the left atrium. Ablation of electrograms confirmed Electrical cardioversion performed for persistence of atrial fibrillation despite successful ablation. Diagnostic catheters for the high right atrium, His bundle, coronary sinus placed. LA and RA pressures recorded RA pressure: 10/7/8 LA pressure: 13/6/10 Diagnostic EP study with coronary sinus pacing and recording Baseline measurements: HV interval 45 ms sinus rhythm Venous sheaths were removed and hemostasis assured with a closure device. Patient extubated and transferred to recovery Increase procedural time During ablation multiple attempts had to be made to move the esophagus a safe distance of the from the pulmonary vein draining cryoablation, to avoid excessive thermal cooling of the esophagus This took extra time and effort to keep the esophagus a safe distance away from the cryoablation balloon. During ablation of the right-sided veins, phrenic nerve stimulation was noted within the right-sided veins. The cryo balloon in close proximity to this location, during standard technique for occlusion of the vein, posing a risk to the phrenic nerve. Therefore the balloon was repositioned around the antrum in a roving fashion to isolate the vein at an extra ostial level to minimize the risk of phrenic nerve injury. The right-sided veins were completely and successfully isolated with this extra effort Multiple attempts needed for successful cryoablation isolation of the pulmonary vein PROCEDURES PERFORMED Diagnostic EP study CS pacing and recording Left and right transseptal catheterization Catheter the mapping of the tachycardia Intracardiac echocardiography Pulmonary vein isolation with transseptal and comprehensive EPS, 02001 Left atrial roof line, +[id number] Linear ablation, left atrium, +[id number] Electrical cardioversion with a synchronized shock across the chest [id number]
[2024-02-03] MEDS: ONDANSETRON 4 MG/2 ML VIAL IM STA (14:06)
[2024-02-03] MEDS: ACETAMINOPHEN IV (For NPO) 1,000 MG in EMPTY BAG 1 BAG IVPB ONE (14:25)
[2024-02-03] MEDS: COLCHICINE 0.6 MG EACH PO STA (16:08)
[2024-02-03] MEDS: SODIUM CHLORIDE 0.9% 1,000 ML IV SCH (17:22)
[2024-02-03] MEDS: METOPROLOL TARTRATE 25 MG TAB PO SCH (20:06)
[2024-02-03] MEDS: RANOLAZINE 500 MG TAB.ER.12H PO SCH (20:06)
[2024-02-04] MEDS: COLCHICINE 0.6 MG EACH PO SCH (05:55)
[2024-02-04 07:56] VITALS: TEMP 98.3
[2024-02-04 07:59] VITALS: BP 118/64; PULSE 62; RESP 14
--- NOTE | 2024-02-04 08:12 | P.PRLE ---
RE: Torsten Burns Dear Alan Sarmiento underwent an A-fib ablation with PVI and linear ablation of the left atrium. He did require electrical cardioversion despite an extensive ablation Hopefully he maintains sinus rhythm with this treatment If not I may have to treat him with dofetilide if he has a recurrence of atrial fibrillation If he has a recurrence of atrial tachycardia or atrial flutter, then an ablation may be needed He will continue anticoagulation and all his medications as before and will follow-up with you and Dr. Briseno as before Thank you for entrusting me with the care of the patient Warm regards Sincerely Afshin Moore
[2024-02-04] MEDS: LOSARTAN 50 MG TAB PO SCH (09:27)
[2024-02-04] MEDS: ATORVASTATIN 40 MG TAB PO SCH (09:27)
[2024-02-04] MEDS: EZETIMIBE 10 MG TAB PO SCH (09:27)
[2024-02-04] MEDS: CLOPIDOGREL 75 MG TAB PO SCH (09:27)
[2024-02-04] MEDS: RIVAROXABAN 20 MG TAB PO SCH (09:27)
[2024-02-04] MEDS: METOPROLOL TARTRATE 50 MG TAB PO SCH (09:27)
[2024-02-04] MEDS: CHLORTHALIDONE 25 MG TAB PO SCH (09:28)
== END 2024-02-04 13:15 | disposition home or self-care (01) ==
LOC: CATHEP 08:36 → 6NMEDSUR 15:48 → CATHEP 02-04 13:15
PROVIDERS: ATTEND Internal Medicine Clinical Cardiac Electrophysiology
DX: I48.19 Other persistent atrial fibrillation (principal); I42.9 Cardiomyopathy, unspecified; I11.0 Hypertensive heart disease with heart failure; E78.5 Hyperlipidemia, unspecified; G47.30 Sleep apnea, unspecified; I25.10 Atherosclerotic heart disease of native coronary artery without angina pectoris; I50.9 Heart failure, unspecified; H91.90 Unspecified hearing loss, unspecified ear; Z85.46 Personal history of malignant neoplasm of prostate; Z95.5 Presence of coronary angioplasty implant and graft; Z79.899 Other long term (current) drug therapy; Z79.01 Long term (current) use of anticoagulants
CPT/HCPCS: 92960; 93656; 93657; 86900; 86901; 86850; C1894 ×2; C1769 ×3; C1760 ×2; C1730 ×2; C1759; C1893; C1733; C1766; J1644 ×3; J2405; J2001; J0131; Q9967

== ENCOUNTER 2024-08-07 08:48 | Emergency (ER) | payer MEDICARE ==
[2024-08-07 09:19] VITALS: TEMP 97.6
--- NOTE | 2024-08-07 09:51 | ED ---
General Adult HPI - General Chief complaint: Extremity Problem,Nontraumatic Stated complaint: poss blood clot Time Seen by Provider: 08/07/24 09:21 Source: patient Mode of arrival: ambulatory Limitations: no limitations - History of Present Illness Initial comments: Dictation was produced using Note dictation software. please excuse any grammatical, word or spelling errors. Chief Complaint: 78-year-old male sent to the ER from cardiology office for rule out right lower extremity DVT History of Present Illness: Patient 78-year-old male has history of A-fib takes anticoagulation medications. For the last couple weeks he has not had worsening symptoms of right calf pain. Patient went to see his roving changer for follow-up on his A-fib. Sent to the ER for concerns of right lower extremity DVT. Denies any chest pain or shortness of breath. Reports neuropathy symptoms to his bilateral lower legs. States that he feels numb in his calf and around his ankle. The ROS documented in this emergency department record has been reviewed and confirmed by me. Those systems with pertinent positive or negative responses have been documented in the HPI. All other systems are other negative and/or noncontributory. - Related Data Home Medications Medication Instructions Recorded Confirmed Ezetimibe [Zetia] 10 mg PO DAILY 09/22/23 02/01/24 Chlorthalidone 12.5 mg PO DAILY 02/01/24 02/01/24 Metoprolol Tartrate 50 mg PO QAM 02/01/24 02/01/24 Metoprolol Tartrate [Lopressor] 25 mg PO HS 02/01/24 02/03/24 Rivaroxaban [Xarelto] 15 mg PO DAILY 02/03/24 02/03/24 Previous Rx's Medication Instructions Recorded Atorvastatin [Lipitor] 40 mg PO DAILY #90 tab 09/24/23 Clopidogrel [Plavix] 75 mg PO DAILY #90 tab 09/24/23 Nitroglycerin Sl Tabs [Nitrostat] 0.4 mg SUBLINGUAL Q5M PRN #25 tab 09/24/23 Losartan [Cozaar] 50 mg PO DAILY #90 tab 11/25/23 Ranolazine [Ranexa] 500 mg PO BID #60 tab 11/25/23 Allergies Allergy/AdvReac Type Severity Reaction Status Date / Time No Known Allergies Allergy Verified 08/07/24 09:15 Review of Systems ROS Statement: Those systems with pertinent positive or pertinent negative responses have been documented in the HPI. ROS Other: All systems not noted in ROS Statement are negative. Past Medical History Past Medical History: Atrial Fibrillation, Cancer, Heart Failure, Hyperlipidemia, Hypertension, Sleep Apnea/CPAP/BIPAP Additional Past Medical History / Comment(s): Prostate cancer with seeds implanted, [place] History of Any Multi-Drug Resistant Organisms: None Reported Past Surgical History: Orthopedic Surgery Additional Past Surgical History / Comment(s): Cardioversions, multiple surgeries for fractures with surgeries, colonoscopy Past Anesthesia/Blood Transfusion Reactions: No Reported Reaction Past Psychological History: No Psychological Hx Reported Smoking Status: Never smoker Past Alcohol Use History: Rare Past Drug Use History: None Reported - Past Family History Mother Family Medical History: No Reported History Additional Family Medical History / Comment(s): Mother is 94 yrs old. Father Additional Family Medical History / Comment(s): at age 65yrs/etoh. General Exam - General Exam Comments Initial Comments: PHYSICAL EXAM: General Impression: Alert and oriented x3, not in acute distress HEENT: Normocephalic atraumatic, extra-ocular movements intact, pupils equal and reactive to light bilaterally, mucous membranes moist. Cardiovascular: Heart regular rate and rhythm Chest: Able to complete full sentences, no retractions, no tachypnea Abdomen: abdomen soft, non-tender, non-distended, no organomegaly Musculoskeletal: Pulses present and equal in all extremities, no peripheral edema Motor: no focal deficits noted Neurological: CN II-XII grossly intact, no focal motor or sensory deficits noted Skin: Intact with no visualized rashes Psych: Normal affect and mood Limitations: no limitations Course Vital Signs 08/07/24 09:15 Temperature 97.6 F Pulse Rate 61 Respiratory 21 Rate Blood Pressure 141/81 O2 Sat by Pulse 97 Oximetry Medical Decision Making - Medical Decision Making Was pt. sent in by a medical professional or institution (, PA, GEOSPATIAL IMAGERY INTELLIGENCE ANALYST, urgent care, hospital, or half-way...) When possible be specific @ -No Did you speak to anyone other than the patient for history (EMS, parent, family, police, friend...)? What history was obtained from this source @ -No Did you review nursing and triage notes (agree or disagree)? Why? @ -I reviewed and agree with nursing and triage notes Were old charts reviewed (outside hosp., previous admission, EMS record, old EKG, old radiological studies, urgent care reports/EKG's, half-way records)? Report findings @ -No old charts were reviewed Differential Diagnosis (chest pain, altered mental status, abdominal pain women, abdominal pain men, vaginal bleeding, musculoskeletal, weakness, fever, dyspnea, syncope, headache, dizziness, GI bleed, back pain, seizure, CVA, palpatations, mental health)? @ -DVT, calf strain, calf contusion EKG interpreted by me (3pts min.). @ -None done X-rays interpreted by me (1pt min.). @ -None done CT interpreted by me (1pt min.). @ -None done U/S interpreted by me (1pt. min.). @ -Ultrasound right lower extremity shows no deep venous thrombosis What testing was considered but not performed or refused? (CT, X-rays, U/S, labs)? Why? @ -None What meds were considered but not given or refused? Why? @ -None Was smoking cessation discussed for >3mins.? @ -No Were there social determinants of health that impacted care today? How? (Homelessness, low income, unemployed, alcoholism, drug addiction, transportation, low edu. Level, literacy, decrease access to med. care, alf, rehab)? @ -No Was there de-escalation of care discussed even if they declined (Discuss DNR or withdrawal of care, Hospice)? DNR status @ -No What co-morbidities impacted this encounter? (DM, HTN, Smoking, COPD, CAD, Cancer, CVA, ARF, Chemo, Hep., AIDS, mental health diagnosis, sleep apnea, mor bid obesity)? @ -None Was patient admitted / discharged? Hospital course, mention meds given and route, prescriptions, significant lab abnormalities, going to OR and other pertinent info. @ -78-year-old male with several weeks of calf tenderness presents to the ER from roving changer office for rule out right lower extremity DVT. Vital signs stable. Ultrasound shows no DVT. No high risk features patient discharged advised follow-up with primary care doctor Did you discuss the management of the patient with other professionals (professionals i.e. , PA, GEOSPATIAL IMAGERY INTELLIGENCE ANALYST, lab, RT, psych nurse, social work job titles, tape transferrer, teacher, education officer, keycase assembler)? Give summary @ -No Was critical care preformed (if so, how long)? @ -No Undiagnosed new problem with uncertain prognosis? @ -No Drug Therapy requiring intensive monitoring for toxicity (Heparin, Nitro, Insulin, Cardizem)? @ -No Were any procedures done? @ -No Diagnosis/symptom? Acute, or Chronic, or Acute on Chronic? Uncomplicated (without systemic symptoms) or Complicated (systemic symptoms)? @ -Calf pain Side effects of treatment? @ -No Exacerbation, Progression, or Severe Exacerbation? @ -No Poses a threat to life or bodily function? How? (Chest pain, [place], [place], pneumonia, PE, COPD, DKA, ARF, appy, cholecystitis, CVA, Diverticulitis, Homicidal, Suicidal, threat to staff... and all critical care pts) @ -No Disposition Clinical Impression: Calf pain Disposition: HOME SELF-CARE Condition: Good Instructions (If sedation given, give patient instructions): Leg Cramps (ED) Is patient prescribed a controlled substance at d/c from ED?: No Referrals: Alan Baptiste DO [Primary Care Provider] - 1-2 days Time of Disposition: 10:47
--- NOTE | 2024-08-07 10:39 | US ---
EXAMINATION TYPE: US venous doppler duplex LE RT DATE OF EXAM: 08/07/2024 10:02 AM COMPARISON: NONE CLINICAL INDICATION: Male, 78 years old with history of leg pain, rule out dvt; Right calf and foot p ain TECHNIQUE: The lower extremity deep venous system is examined utilizing real time linear array sonog jessika with graded compression, color doppler sonography, and spectral doppler. SIDE PERFORMED: Right FINDINGS: VESSELS IMAGED: Common Femoral Vein Deep Femoral Vein Greater Saphenous Vein * Femoral Vein Popliteal Vein Small Saphenous Vein * Proximal Calf Veins (* superficial vessels) Right Leg: Appears negative for DVT IMPRESSION: No ultrasound evidence for deep venous thrombosis. [facility], , 08/07/2024 10:37 AM
[2024-08-07 10:56] VITALS: BP 144/97; PULSE 76; RESP 18
== END 2024-08-07 10:56 | disposition home or self-care (01) ==
LOC: EC 08:48
DX: M79.661 Pain in right lower leg (principal); I48.91 Unspecified atrial fibrillation
CPT/HCPCS: 99284